=== PATIENT | female | born 2000 | race Caucasian/White ===

== ENCOUNTER 2018-09-28 19:54 | Emergency (ER) | payer OTHER ==
[~2018-09-28] VITALS: Ht 157.5 cm; Wt 79.4 kg
[2018-09-28 19:59] VITALS: BP 140/101
--- NOTE | 2018-09-28 20:18 | NUR ---
PT BIB MOTHER C/O CHEST PAIN. PT STATES SUDDEN ONSET OF INTERMITTENT MEDIAL CHEST PAIN, AT 1500 PAIN WAS CONSTANT 7/10. PT STATES CURRENT PAIN IS 7/10 SHARP, PAIN; NON-RADIATING. +CHEST TENDERNESS W/ PALPATION. DENIES TRAUMA, OR INJURY; DENIES N/V/D, FEVER, COUGH OR CHILLS. PULSES NON-BONDING, EQUAL BL. PT ACTING APPROPRIATLY, SPEAKING IN COMPLETE CLEAR SENTENCES. 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 PMH: DENIES RX: CONTROL
--- NOTE | 2018-09-28 20:20 | NUR ---
DR. BACH AT BEDSIDE FOR EVALUATION.
[2018-09-28] MEDS ORDERED: KETOROLAC 30 MG/ML VIAL IM ONE (20:25)
--- NOTE | 2018-09-28 20:42 | NUR ---
LAB AT BEDSIDE.
--- NOTE | 2018-09-28 20:49 | NUR ---
X-RAY AT BEDSIDE FOR IMAGING.
[2018-09-28 20:59] LABS: CARBON DIOXIDE 25.9 mmol/L (21-32); CREATININE 0.6 mg/dL (0.6-1.3); POTASSIUM 3.9 mmol/L (3.5-5.1)
[2018-09-28] MEDS ORDERED: DICYCLOMINE HCL LIQUID 20 MG, ALUMINUM HYD/MAG/SIMETHICONE 30 ML, LIDOCAINE VISCOUS 2% ... PO ONE ×3 (21:40)
[2018-09-28 23:28] LABS: TOTAL BILIRUBIN 0.3 mg/dL (0.0-1.0)
[2018-09-28 23:29] LABS: ALBUMIN 3.3 g/dL (3.4-5.0)
[2018-09-28 23:40] VITALS: BP 125/73
== END 2018-09-28 23:40 | disposition home or self-care (01) ==
LOC: MED 19:54
DX: R07.89 Other chest pain (principal)
CPT/HCPCS: 36415; 71045; 80048; 80076; 81002; 81025; 83690; 84484; 85379; 93005; 96372; 99284; J1885; Q0092